=== PATIENT | male | born 1950 | race Caucasian/White ===

== ENCOUNTER 2023-12-13 22:01 | Inpatient (IN) | payer MEDICARE ==
[~2023-12-13] VITALS: Ht 182.9 cm; Wt 97.1 kg
[2023-12-13 23:16] LABS: *BILIRUBIN,URIN NEGATIVE (NEGATIVE); *BLOOD, URINE 3+ (NEGATIVE); *CLARITY,URINE CLOUDY (CLEAR); *COLOR,URINE YELLOW (YELLOW); *KETONES,URINE NEGATIVE (NEGATIVE); *PROTEIN,URINE 2+ (NEGATIVE); *UROBILINOGEN,URINE 0.2 E.U./dl (NORMAL); LEUKOCYTE ESTERASE ,URINE 1+ (NEGATIVE); NITRITE, URINE NEGATIVE (NEGATIVE); UGLUCOSE NEGATIVE (NEGATIVE)
[2023-12-13 23:26] LABS: CALCIUM 8.1 mg/dL (8.5-10.1); CARBON DIOXIDE 38 mmol/L (21-32); CHLORIDE 99 mmol/L (98-107); CREATININE 0.9 mg/dL (0.6-1.3); GLUCOSE 153 mg/dL (74-106); POTASSIUM 3.4 mmol/L (3.5-5.1); SODIUM SERUM 138 mmol/L (136-145); UREA NITROGEN, BLOOD 10 mg/dL (7-18)
[2023-12-13 23:27] LABS: RBC,URINE 50-80 /HPF (0-3)
[2023-12-13 23:28] LABS: BACTERIA,URINE MODERATE /HPF (NONE SEEN); SQUAMOUS EPITHELIAL CELL,UR MODERATE /HPF (NONE SEEN); YEAST,URINE MANY /HPF (NONE SEEN)
[2023-12-13 23:31] LABS: ALANINE AMINOTRANSFERASE 10 U/L (16-63); ALKALINE PHOSPHATASE 101 U/L (50-136); ASPARTATE AMINOTRANSFERASE 15 U/L (15-37); BILIRUBIN,TOTAL 0.5 mg/dL (0.2-1.0); TOTAL PROTEIN, SERUM 5.5 g/dL (6.4-8.2)
[2023-12-13 23:34] LABS: ALBUMIN 1.4 g/dL (3.4-5.0)
[2023-12-14 00:16] LABS: BASOPHILS # (AUTO) 0.1 K/UL (0.0-0.2); BASOPHILS % (AUTO) 1.6 % (0.0-2.0); EOSINOPHILS # (AUTO) 0.3 K/uL (0.0-0.7); HEMATOCRIT 29.5 % (36.7-47.1); HEMOGLOBIN 9.5 g/dL (12.5-16.3); LYMPHOCYTES # (AUTO) 2.7 K/uL (0.8-4.8); LYMPHOCYTES % (AUTO) 39.2 % (20.5-51.5); MEAN CORPUSCULAR HEMOGLOBIN 27.6 uug (23.8-33.4); MEAN CORPUSCULAR HGB CONC 32 g/dL (32.5-36.3); MEAN CORPUSCULAR VOLUME 85.4 fL (73.0-96.2); MONOCYTES # (AUTO) 0.5 K/uL (0.1-1.30); NEUTROPHILS # (AUTO) 3.4 K/uL (1.8-8.9); NEUTROPHILS % (AUTO) 48.2 % (38.5-71.5); PLATELET COUNT (AUTO) 321 K/uL (152-348); RED BLOOD CELL COUNT(AUTO) 3.45 MIL/uL (4.06-5.63); RED CELL DISTRIBUTION WIDTH 19.4 % (12.1-16.2); WHITE BLOOD COUNT (AUTO) 6.9 K/uL (3.6-10.2)
[2023-12-14 00:17] LABS: DIFFERENTIAL COMMENT 1
[2023-12-14] MEDS ORDERED: CEFEPIME HCL 1 G VIAL ONE (00:28)
[2023-12-14] MEDS: CEFEPIME HCL 1 G in IV DEXTROSE 5% 50 ML IV ONE (01:16)
[2023-12-14] MEDS ORDERED: GABA-532 PO (01:20)
[2023-12-14] MEDS ORDERED: LEVO25TA9 PO (01:20)
[2023-12-14] MEDS ORDERED: ASPI81TA31 PO (01:20)
[2023-12-14] MEDS ORDERED: BLOO-360 IN (01:21)
[2023-12-14] MEDS ORDERED: MAGNESIUM HYDROXIDE 30 ML LIQUID UDC PO PRN (04:00)
[2023-12-14] MEDS ORDERED: ACETAMINOPHEN 325 MG TABLET PO PRN (04:00)
[2023-12-14] MEDS ORDERED: REMEDY ESSENTIAL ZINC PASTE 113 GM TP PRN (04:00)
[2023-12-14] MEDS ORDERED: ONDANSETRON 4 MG/2 ML VIAL IV PRN (04:00)
[2023-12-14] MEDS ORDERED: METRONIDAZOLE 500 MG/NS 100ML 100 ML IV ONE (04:08)
[2023-12-14] MEDS ORDERED: POTASSIUM CHLORIDE 20 MEQ TAB.PRT.SR ONE (04:09)
[2023-12-14] MEDS: POTASSIUM CHLORIDE 20 MEQ TAB.PRT.SR PO ONE (04:27)
[2023-12-14] MEDS: METRONIDAZOLE 500 MG/NS 100 ML PIGGYBACK IV ONE (04:27)
[2023-12-14] MEDS: LORAZEPAM 2 MG/1 ML VIAL IV ONE ×2 (04:30→06:32)
[2023-12-14 06:00] VITALS: BP 118/74; TEMP 97.5
[2023-12-14] MEDS ORDERED: GABAPENTIN 100 MG CAPSULE PO SCH (09:00)
[2023-12-14] MEDS ORDERED: LEVOTHYROXINE SODIUM 25 MCG TABLET PO SCH (09:00)
[2023-12-14] MEDS ORDERED: ACETAMINOPHEN 650 MG SUPP.RECT RC PRN (09:15)
[2023-12-14 11:52] VITALS: BP 112/59; TEMP 98; O2SAT 100
[2023-12-14] MEDS: POTASSIUM CHLORIDE 20 MEQ in IV D5/ 0.9% NACL 1,000 ML IV PRN (11:59)
[2023-12-14] MEDS: METRONIDAZOLE 500 MG/NS 100ML 500 MG in PREMIXED 1 EACH IV SCH (13:02)
[2023-12-14] MEDS: CEFEPIME HCL 1 G in IV DEXTROSE 5% 50 ML IV SCH (14:00)
[2023-12-14] MEDS: MEDIHONEY= THERAHONEY 1.5 OZ TUBE TOP SCH (14:17)
[2023-12-14] MEDS: SODIUM HYPOCHLORITE 0.125% (QUARTER STRENGTH) 473 ML BOTTLE TP SCH (14:18)
[2023-12-14 15:57] VITALS: BP 102/60; TEMP 98.3; O2SAT 100
[2023-12-14 20:00] VITALS: BP 99/63; TEMP 97.3; O2SAT 98
[2023-12-15 06:00] VITALS: BP 97/58; TEMP 97.4; O2SAT 98
[2023-12-15 07:18] LABS: THYROID STIMULATING HORMONE 4.151 mIU/mL (0.358-3.740)
[2023-12-15 07:34] LABS: ALANINE AMINOTRANSFERASE 8 U/L (16-63); ALKALINE PHOSPHATASE 94 U/L (50-136); ASPARTATE AMINOTRANSFERASE 10 U/L (15-37); BILIRUBIN,TOTAL 0.5 mg/dL (0.2-1.0); CARBON DIOXIDE 34 mmol/L (21-32); CHLORIDE 103 mmol/L (98-107); CHOLESTEROL 111 mg/dL (<200); CREATININE 0.8 mg/dL (0.6-1.3); GLUCOSE 160 mg/dL (74-106); HDL CHOLESTEROL 31 mg/dL (40-60); POTASSIUM 3.7 mmol/L (3.5-5.1); SODIUM SERUM 138 mmol/L (136-145); TOTAL PROTEIN, SERUM 5.2 g/dL (6.4-8.2); TRIGLYCERIDES 90 MG/DL (30-150); UREA NITROGEN, BLOOD 11 mg/dL (7-18)
[2023-12-15 07:35] LABS: IRON, SERUM 25 ug/dL (50-175)
[2023-12-15 07:44] LABS: ALBUMIN 1.3 g/dL (3.4-5.0); CALCIUM 7.9 mg/dL (8.5-10.1)
[2023-12-15] MEDS ORDERED: FLUCONAZOLE 200 MG/NS 100ML IV 100 MG in PREMIXED 1 EACH IV SCH (09:00)
[2023-12-15] MEDS: FLUCONAZOLE 200 MG/NS 100ML IV 200 MG in PREMIXED 1 EACH IV SCH (09:38)
[2023-12-15 11:51] VITALS: BP 97/66; TEMP 98.6; O2SAT 98
[2023-12-15 16:02] VITALS: BP 100/58; TEMP 97.6; O2SAT 97
[2023-12-15 16:17] VITALS: O2SAT 97
[2023-12-15 21:23] VITALS: O2SAT 96
[2023-12-15] MEDS: METRONIDAZOLE 500 MG/NS 100ML 500 MG in PREMIXED 1 EACH IV SCH (22:01)
[2023-12-15] MEDS: CEFEPIME HCL 1 G in IV DEXTROSE 5% 50 ML IV SCH (23:00)
[2023-12-15 23:19] VITALS: BP 97/61; TEMP 97.2; O2SAT 96
[2023-12-16 06:00] VITALS: BP 117/88; TEMP 97.9; O2SAT 94
[2023-12-16] MEDS ORDERED: CEFEPIME HCL 1 G in IV DEXTROSE 5% 50 ML IV SCH (06:00)
[2023-12-16] MEDS ORDERED: METRONIDAZOLE 500 MG/NS 100ML 500 MG in PREMIXED 1 EACH IV SCH (06:00)
[2023-12-16 08:45] LABS: BASOPHILS # (AUTO) 0.1 K/UL (0.0-0.2); BASOPHILS % (AUTO) 2.1 % (0.0-2.0); EOSINOPHILS # (AUTO) 0.2 K/uL (0.0-0.7); EOSINOPHILS % (AUTO) 3.8 % (0.0-7.0); HEMATOCRIT 25.9 % (36.7-47.1); HEMOGLOBIN 8.5 g/dL (12.5-16.3); LYMPHOCYTES # (AUTO) 1.8 K/uL (0.8-4.8); LYMPHOCYTES % (AUTO) 35.8 % (20.5-51.5); MEAN CORPUSCULAR HEMOGLOBIN 28.2 uug (23.8-33.4); MEAN CORPUSCULAR HGB CONC 33 g/dL (32.5-36.3); MEAN CORPUSCULAR VOLUME 85.9 fL (73.0-96.2); MONOCYTES # (AUTO) 0.3 K/uL (0.1-1.30); MONOCYTES % (AUTO) 6.4 % (0.0-11.0); NEUTROPHILS # (AUTO) 2.6 K/uL (1.8-8.9); NEUTROPHILS % (AUTO) 51.9 % (38.5-71.5); PLATELET COUNT (AUTO) 262 K/uL (152-348); RED BLOOD CELL COUNT(AUTO) 3.02 MIL/uL (4.06-5.63); RED CELL DISTRIBUTION WIDTH 18.9 % (12.1-16.2)
[2023-12-16 08:49] LABS: DIFFERENTIAL COMMENT 1
[2023-12-16 08:53] LABS: CALCIUM 7.4 mg/dL (8.5-10.1); CARBON DIOXIDE 33 mmol/L (21-32); CHLORIDE 105 mmol/L (98-107); CREATININE 0.8 mg/dL (0.6-1.3); GLUCOSE 182 mg/dL (74-106); POTASSIUM 3.4 mmol/L (3.5-5.1); SODIUM SERUM 134 mmol/L (136-145); UREA NITROGEN, BLOOD 9 mg/dL (7-18)
[2023-12-16] MEDS: CEFEPIME HCL 1 G in IV DEXTROSE 5% 50 ML IV SCH (09:17)
[2023-12-16] MEDS: POTASSIUM CHLORIDE 50 ML IV SCH (09:59)
[2023-12-16 11:52] VITALS: BP 96/50; TEMP 97.8; O2SAT 97
[2023-12-16 15:56] VITALS: BP 123/57; TEMP 97.7; O2SAT 98
[2023-12-16 16:03] VITALS: O2SAT 97
[2023-12-16 20:00] VITALS: BP 102/59; TEMP 97.7; O2SAT 98
[2023-12-17 05:06] VITALS: O2SAT 97
[2023-12-17 06:00] VITALS: BP 111/69; TEMP 97.7; O2SAT 94
[2023-12-17 06:46] LABS: CALCIUM 7.5 mg/dL (8.5-10.1); CARBON DIOXIDE 29 mmol/L (21-32); CHLORIDE 106 mmol/L (98-107); CREATININE 0.7 mg/dL (0.6-1.3); GLUCOSE 187 mg/dL (74-106); MAGNESIUM 1.7 mg/dL (1.8-2.4); PHOSPHOROUS 2.2 mg/dL (2.5-4.9); POTASSIUM 3.6 mmol/L (3.5-5.1); SODIUM SERUM 138 mmol/L (136-145); UREA NITROGEN, BLOOD 8 mg/dL (7-18)
[2023-12-17] MEDS: MAGNESIUM SULFATE/D5W 100 ML IV SCH (07:52)
[2023-12-17] MEDS ORDERED: SILVER NITRATE APPLICATOR STICK EACH TP ONE (08:00)
[2023-12-17 11:55] VITALS: BP 97/57; TEMP 98.6; O2SAT 97
[2023-12-17] MEDS: NEUTRA PHOS PACKET PO ONE (16:05)
[2023-12-17 16:39] VITALS: BP 100/59; TEMP 97.9; O2SAT 98
[2023-12-17 20:00] VITALS: BP 90/67; TEMP 97.6; O2SAT 96
[2023-12-18] MEDS: HALOPERIDOL LACTATE 5 MG/1 ML VIAL IM PRN (01:15)
[2023-12-18] MEDS: MORPHINE SULFATE 2 MG/1 ML DISP.SYRIN IV PRN ×2 (03:24→15:01)
[2023-12-18 07:56] LABS: CALCIUM 7.4 mg/dL (8.5-10.1); CARBON DIOXIDE 29 mmol/L (21-32); CHLORIDE 108 mmol/L (98-107); CREATININE 0.7 mg/dL (0.6-1.3); GLUCOSE 216 mg/dL (74-106); PHOSPHOROUS 2.2 mg/dL (2.5-4.9); SODIUM SERUM 139 mmol/L (136-145); UREA NITROGEN, BLOOD 7 mg/dL (7-18)
[2023-12-18 10:04] LABS: BASOPHILS # (AUTO) 0.1 K/UL (0.0-0.2); BASOPHILS % (AUTO) 1.9 % (0.0-2.0); EOSINOPHILS # (AUTO) 0.2 K/uL (0.0-0.7); HEMATOCRIT 24.4 % (36.7-47.1); LYMPHOCYTES # (AUTO) 2.4 K/uL (0.8-4.8); LYMPHOCYTES % (AUTO) 46.7 % (20.5-51.5); MEAN CORPUSCULAR HEMOGLOBIN 28.2 uug (23.8-33.4); MEAN CORPUSCULAR HGB CONC 33 g/dL (32.5-36.3); MEAN CORPUSCULAR VOLUME 86.3 fL (73.0-96.2); MONOCYTES # (AUTO) 0.4 K/uL (0.1-1.30); MONOCYTES % (AUTO) 7.2 % (0.0-11.0); NEUTROPHILS # (AUTO) 2.1 K/uL (1.8-8.9); NEUTROPHILS % (AUTO) 40.2 % (38.5-71.5); PLATELET COUNT (AUTO) 244 K/uL (152-348); RED BLOOD CELL COUNT(AUTO) 2.83 MIL/uL (4.06-5.63); RED CELL DISTRIBUTION WIDTH 18.9 % (12.1-16.2); WHITE BLOOD COUNT (AUTO) 5.1 K/uL (3.6-10.2)
[2023-12-18 10:08] LABS: DIFFERENTIAL COMMENT 1
[2023-12-18] MEDS ORDERED: ALPRAZOLAM 0.5 MG TABLET PO ONE (10:30)
[2023-12-18 11:21] VITALS: BP 95/56; TEMP 97.6; O2SAT 96
[2023-12-18] MEDS: ALPRAZOLAM 0.5 MG TABLET PO ONE (12:34)
[2023-12-18] MEDS: SODIUM PHOSPHATE MM 15 MMOL in IV NORMAL SALINE 250 ML IV ONE (15:42)
[2023-12-18 16:10] VITALS: BP 102/52; TEMP 97.6; O2SAT 97
[2023-12-18 19:36] VITALS: BP 109/58; TEMP 97.5; O2SAT 98
[2023-12-18] MEDS: CEFEPIME HCL 1 G in IV DEXTROSE 5% 50 ML IV SCH (20:00)
[2023-12-19] MEDS: ZOLPIDEM 5 MG TABLET PO ONE (00:40)
[2023-12-19 07:53] LABS: CALCIUM 7.3 mg/dL (8.5-10.1); CARBON DIOXIDE 28 mmol/L (21-32); CHLORIDE 109 mmol/L (98-107); CREATININE 0.7 mg/dL (0.6-1.3); GLUCOSE 192 mg/dL (74-106); PHOSPHOROUS 2.8 mg/dL (2.5-4.9); SODIUM SERUM 139 mmol/L (136-145); UREA NITROGEN, BLOOD 6 mg/dL (7-18)
[2023-12-19 11:51] VITALS: BP 95/53; TEMP 97.5; O2SAT 95
[2023-12-19] MEDS ORDERED: CEFTRIAXONE 2 G VIAL IM SCH (13:00)
[2023-12-19] MEDS: CEFTRIAXONE 2 G in IV DEXTROSE 5% 100 ML IV SCH (14:33)
[2023-12-19 16:31] VITALS: BP 103/65; TEMP 97.9; O2SAT 97
[2023-12-19] MEDS: HYDROCODONE/APAP 5-325MG TABLET PO PRN (17:31)
[2023-12-19 19:55] VITALS: BP 98/55; TEMP 97.7; O2SAT 96
[2023-12-19] MEDS: METRONIDAZOLE 500 MG TABLET PO SCH (21:19)
[2023-12-20 04:55] VITALS: BP 119/58; TEMP 97.6; O2SAT 98
[2023-12-20] MEDS: FLUCONAZOLE 100 MG TABLET PO SCH (08:53)
[2023-12-20] MEDS ORDERED: FLUC100T PO (09:31)
[2023-12-20] MEDS ORDERED: LEVO500T90 PO (09:31)
[2023-12-20] MEDS ORDERED: LEVO25TA9 PO (09:31)
[2023-12-20] MEDS ORDERED: METR500T PO (09:31)
[2023-12-20 11:46] VITALS: BP 90/47; TEMP 98.6; O2SAT 97
[2023-12-20 15:47] VITALS: BP 104/62; TEMP 97.9; O2SAT 98
== END 2023-12-20 17:30 | DRG 981 ==
LOC: ER 22:08 → MEDSURG3 12-14 03:55
PROVIDERS: ATTEND Internal Medicine
PROC: 05HB33Z Insertion of Infusion Device into Right Basilic Vein, Percutaneous Approach (ICD-10-PCS; principal; 2023-12-14)
PROC: 05HF33Z Insertion of Infusion Device into Left Cephalic Vein, Percutaneous Approach (ICD-10-PCS; 2023-12-16)
PROC: 0KBN0ZZ Excision of Right Hip Muscle, Open Approach (ICD-10-PCS; 2023-12-17)
PROC: 0KBP0ZZ Excision of Left Hip Muscle, Open Approach (ICD-10-PCS; 2023-12-17)
PROC: 05HB33Z Insertion of Infusion Device into Right Basilic Vein, Percutaneous Approach (ICD-10-PCS; 2023-12-18)
DX: K80.10 Calculus of gallbladder with chronic cholecystitis without obstruction (principal); E43 Unspecified severe protein-calorie malnutrition; G92.8 Other toxic encephalopathy; L89.154 Pressure ulcer of sacral region, stage 4; B37.49 Other urogenital candidiasis; J90 Pleural effusion, not elsewhere classified; D68.59 Other primary thrombophilia; J98.11 Atelectasis; J96.10 Chronic respiratory failure, unspecified whether with hypoxia or hypercapnia; Z89.421 Acquired absence of other right toe(s); Z89.512 Acquired absence of left leg below knee; E11.51 Type 2 diabetes mellitus with diabetic peripheral angiopathy without gangrene; E11.42 Type 2 diabetes mellitus with diabetic polyneuropathy; Z68.29 Body mass index [BMI] 29.0-29.9, adult; E66.9 Obesity, unspecified; E87.6 Hypokalemia; E88.09 Other disorders of plasma-protein metabolism, not elsewhere classified; E03.9 Hypothyroidism, unspecified; M15.9 Polyosteoarthritis, unspecified; M25.452 Effusion, left hip; M25.451 Effusion, right hip; Z74.09 Other reduced mobility; Z99.81 Dependence on supplemental oxygen; D64.9 Anemia, unspecified; R60.0 Localized edema; R31.0 Gross hematuria; Z79.82 Long term (current) use of aspirin; Z79.890 Hormone replacement therapy; N40.1 Benign prostatic hyperplasia with lower urinary tract symptoms; R33.8 Other retention of urine; Z93.6 Other artificial openings of urinary tract status; E11.22 Type 2 diabetes mellitus with diabetic chronic kidney disease; N18.9 Chronic kidney disease, unspecified
CPT/HCPCS: 36415; 71045; 74181; 78445; 83550; 83735; 84100; 84443; 85025; 87040; 93005; 93307; A4606; A4663; A6213; A9537; G0378; J0692; J0696; J1450; J1630; J2060; J2270; J3475; J3480; J3490; J7042